=== PATIENT | female | born 1985 | race Caucasian/White ===

== ENCOUNTER 2016-12-29 08:38 | Inpatient (IN) | payer BC, OTHER ==
[2017-01-02] MEDS ORDERED: LR / Pitocin 40 units/1000 ml 1,000 ML IV PRN (16:03)
[2017-01-02] MEDS ORDERED: Acetaminophen 500 MG TAB PO PRN (16:03)
[2017-01-02] MEDS ORDERED: Promethazine HCl 25 MG/ML VIAL IM PRN (16:03)
[2017-01-02] MEDS ORDERED: Carboprost 250 MCG/ML AMP IM PRN ×2 (16:03→23:47)
[2017-01-02] MEDS ORDERED: Ondansetron HCl/PF 4 MG/2 ML Vial IVP PRN (16:03)
[2017-01-02] MEDS ORDERED: Zolpidem Tartrate 5 MG TAB PO PRN (16:03)
[2017-01-02 23:39] VITALS: BMI 29.7
[2017-01-02] MEDS ORDERED: LR 500 ML/Oxytocin 10 units 500 ML IV SCH (23:45)
[2017-01-02] MEDS ORDERED: Lidocaine 1% (PF) 30 ML VIAL SC PRN (23:59)
[2017-01-02] MEDS ORDERED: HYDROcodone/Acetaminophen 5/325 mg Tablet PO PRN (23:59)
[2017-01-02] MEDS ORDERED: Ibuprofen 800 MG TAB PO PRN (23:59)
[2017-01-02] MEDS ORDERED: Methylergonovine 0.2 MG/ML VIAL IM PRN (23:59)
[2017-01-02] MEDS ORDERED: Misoprostol 200 MCG TAB PR PRN (23:59)
[2017-01-02] MEDS ORDERED: Diphenoxylate HCl/Atropine Tablet PO PRN (23:59)
[2017-01-03] MEDS: Lactated Ringer's 1,000 ML IV SCH ×4 (00:10→19:36)
[2017-01-03] MEDS: Misoprostol 100 MCG TAB VAG SCH ×4 (00:25→22:02)
[2017-01-03 00:28] LABS: Hematocrit 37.4 % (36.0-47.0); Mean Platelet Volume 6.5 fL (7.4-10.4); Red Blood Cell (RBC) Count 3.89 mill/uL (4.20-5.40); White Blood Cell (WBC) Count 16.3 thou/uL (4.8-10.8)
[2017-01-03] MEDS: Fentanyl 4 mcg/Marc 0.1% Cadd 100 ML ONE ×2 (08:55→14:22)
[2017-01-03] MEDS ORDERED: FLU VACC QS2017-18 36 mo. & older 0.5 ML SYRINGE IM ONE (09:00)
[2017-01-03] MEDS ORDERED: Fentanyl 100 MCG/2 ML VIAL EPIDURAL SCH (10:10)
[2017-01-03] MEDS ORDERED: Eucerin (Mineral Oil/Petrolatum,White) 30 gm Jar TOP PRN ×3 (14:58→22:25)
[2017-01-03] MEDS ORDERED: Ondansetron HCl/PF 4 MG/2 ML Vial IVP PRN ×4 (14:58→22:25)
[2017-01-03] MEDS ORDERED: Naloxone HCl 0.4 mg/ml Vial IVP PRN ×6 (14:58→22:25)
[2017-01-03] MEDS ORDERED: Promethazine HCl 25 MG/ML VIAL IM PRN ×3 (14:58→22:25)
[2017-01-03] MEDS ORDERED: Lactated Ringer's 500 ML IV PRN ×2 (14:58→14:59)
[2017-01-03] MEDS ORDERED: ePHEDrine/0.9% NaCl/PF SYRINGE 50 mg/10 ml SLOW IVP PRN ×2 (14:58→14:59)
[2017-01-03] MEDS ORDERED: Acetaminophen 325 MG TAB PO PRN ×2 (14:58→14:59)
[2017-01-03] MEDS ORDERED: diphenhydrAMINE 50 MG/ML VIAL IVP PRN ×3 (14:58→22:25)
[2017-01-03] MEDS ORDERED: Communication Order-Pharmacy FS SCH ×3 (15:00→22:30)
[2017-01-03] MEDS ORDERED: Fentanyl 4mcg/Marcaine 0.1% Cassette 100 ML EPIDURAL SCH ×2 (15:00)
[2017-01-03] MEDS ORDERED: Bicitra 30 ML UDCUP ONE (20:12)
[2017-01-03] MEDS ORDERED: CEFAZOLIN/Water 2 GM/20 ML SYRINGE ONE (20:12)
[2017-01-03] MEDS ORDERED: Ondansetron HCl/PF 4 MG/2 ML Vial ONE (20:22)
[2017-01-03] MEDS ORDERED: Oxytocin 10 UNITS/ML VIAL ONE (20:22)
[2017-01-03] MEDS ORDERED: Morphine PF 1 MG/ML SYR ONE (20:22)
[2017-01-03] MEDS ORDERED: ePHEDrine/0.9% NaCl/PF SYRINGE 50 mg/10 ml ONE (20:22)
--- NOTE | 2017-01-03 20:26 | PDOC.LDPN ---
Labor & Delivery Progress Note - Subjective Subjective: painful contractions - Objective Vital signs reviewed and normal: yes SVE: 6 Effacement: 50% Station: -1 FHT: category 1 [place] contractions every: 2-3 AROM: clear fluid IUPC placed: yes Plan: other -: Patient was 5-6 cm at 1530 and has failed to progress past 6 cm with noted cervical edema and no further descent. heart rate tracing remains category 1. In light of no further progess, will proceed with primary section for failure to progress.
[2017-01-03] MEDS ORDERED: CEFAZOLIN/Water 2 GM/20 ML SYRINGE SLOW IVP SCH (20:30)
[2017-01-03] MEDS ORDERED: Bicitra 30 ML UDCUP PO SCH (20:30)
--- NOTE | 2017-01-03 21:19 | PDOC.OPDEL ---
OB Operative/Delivery Note Delivery Dr/Surgeon: Claire Assist: Mavis Pre-Delivery Diagnosis: arrest of dilation Procedure/Post Delivery Dx: primary low transverse CS Weeks gestation: 40 Anesthesia: epidural - Findings A Sex: female Weight: 9 lb 6 oz - 1 min: 9 - 5 min: 9 - Additional Findings/Plan Placenta delivered: manual removal findings: low transverse hysterotomy without extension
[2017-01-03] MEDS ORDERED: diphenhydrAMINE 25 MG CAP PO PRN (21:23)
[2017-01-03] MEDS ORDERED: Bisacodyl 10 MG SUPP PR PRN (21:23)
[2017-01-03] MEDS ORDERED: Lanolin Ointment 7 GM TUBE TOP PRN (21:23)
[2017-01-03] MEDS ORDERED: LR w/ Pitocin 40 units/1000 ML BAG IV SCH (21:30)
[2017-01-03] MEDS ORDERED: Adacel (T-DAP) 0.5 ML VIAL IM ONE (22:00)
[2017-01-03] MEDS ORDERED: Ibuprofen 800 MG TAB PO SCH (22:00)
[2017-01-03] MEDS ORDERED: Methylergonovine 0.2 MG/ML VIAL ONE (22:18)
[2017-01-03] MEDS ORDERED: Naloxone HCl 0.4 mg/ml Vial IV PRN (22:25)
[2017-01-03] MEDS ORDERED: Promethazine HCl 25 MG SUPP PR PRN (22:25)
[2017-01-03] MEDS ORDERED: HYDROmorphone 2 MG/ML VIAL SLOW IVP PRN (22:25)
[2017-01-03] MEDS ORDERED: Meperidine HCl/PF 25 MG/ML VIAL SLOW IVP PRN (22:25)
[2017-01-03] MEDS ORDERED: Ketorolac Tromethamine 30 MG/ML VIAL IVP SCH (22:30)
[2017-01-03] MEDS ORDERED: Meperidine HCl/PF 25 MG/ML VIAL ONE (23:45)
[2017-01-04] MEDS: Ketorolac Tromethamine 30 MG/ML VIAL IVP PRN ×2 (01:03→06:54)
[2017-01-04] MEDS: Lactated Ringer's 1,000 ML IV SCH ×3 (01:05→21:46)
[2017-01-04 05:54] LABS: Hematocrit 31.5 % (36.0-47.0); Mean Platelet Volume 6.6 fL (7.4-10.4); Red Blood Cell (RBC) Count 3.23 mill/uL (4.20-5.40)
--- NOTE | 2017-01-04 07:21 | PRG ---
DATE OF SERVICE: 01/03/2017 This is documentation that Dr. Christopher Groves was first breaker feeder on a primary for patient T wally Seals. Dr. Marietta Rangel was primary surgeon.
--- NOTE | 2017-01-04 07:45 | OP ---
DATE OF SURGERY: 01/03/2017 PREOPERATIVE DIAGNOSES: 1. A 31-year-old white female G1, P0 at 40 weeks 5 days' gestation, status post labor induction. 2. Failure to progress past 6 cm. POSTOPERATIVE DIAGNOSES: 1. A 31-year-old white female G1, P0 at 40 weeks 5 days' gestation, status post labor induction. 2. Failure to progress past 6 cm. 3. Large for gestational age female infant. PROCEDURE PERFORMED: Primary low-transverse section. SURGEON: Marietta Rangel M.D. SENIOR ADVISOR: Christopher Groves M.D. ANESTHESIA: Epidural. ESTIMATED BLOOD LOSS: 750 mL COMPLICATIONS: None. COUNTS: Correct x2. ANTIBIOTICS: Two grams Ancef conservation or heritage architect to the OR. FINDINGS: 1. Vigorous female infant, vertex presentation, clear amniotic fluid noted. weight 9 pounds 6 ounces. Apgars 9 and 9. 2. Normal-appearing fallopian tube, uterus, and ovaries. 3. Clear urine present in Alvarez catheter post procedure. DISPOSITION: To the recovery room stable. DESCRIPTION OF OPERATIVE PROCEDURE: The patient previously received informed consent in regard to s reji. She was taken back to the operating room where she received adequate dosing of her epidural for operative delivery. A Pfannenstiel incision was made in the lower abdomen and was carried down to the fascia. The fascia was nicked in midline. The fascial incision was extended bilaterally wi th the use of curved Edwards scissors. The rectus fascia was dissected superiorly and inferiorly off t he rectus muscle bellies. The rectus muscle belly was then divided in the midline. The peritoneal cavity was entered. A large Micah O retractor was then placed and a vesicouterine peritoneum incis ion was made, creating the bladder flap in the usual fashion. A 2 cm hysterotomy incision was made in the lower uterine segment and this was extended via finger fractionation. The baby was delivered in the vertex presentation. Mouth and nares were bulb suctioned on the abdomen. The cord was doub ly clamped and cut and handed to the retina subspecialist, Dr. Moreno who was in attendance. The usual cord blood was obtained and the placenta was manually extracted. The uterus was curetted of any re maining placental fragments with a dry laparotomy sponge. Hysterotomy incision was closed with #1 l ocking Monocryl suture. No extensions were noted. Hemostasis of the hysterotomy site was confirmed . The pelvis was then irrigated and again hysterotomy incision was inspected and hemostasis ensured . The rectus muscle bellies were then noted to be hemostatic after the Micah O retractor had been removed. The rectus fascia was then closed in running continuous fashion with 0 PDS suture x2. Sub cutaneous tissue was irrigated and noted be hemostatic prior to skin approximation with fabian. Th e surgery was terminated. No anesthetic or surgical complications were noted.
--- NOTE | 2017-01-04 08:08 | PDOC.PP ---
Post Progress Note Post Day #: 1 Subjective: adequate pain control. Baby is well. PO intake tolerated: yes Vital Signs (12 hours) Temp Pulse Resp BP Pulse Ox 01/04/17 07:56 98.1 F 70 18 107/54 L 01/04/17 04:30 98.2 F 67 18 111/57 L 01/04/17 01:55 98.2 F 64 20 115/58 L 01/04/17 00:55 98.3 F 64 20 109/64 98 01/04/17 00:00 98.2 F 68 20 114/65 98 Weight Weight 190 lb - Physical Examination General: NAD Cardiovascular: no m/r/g, RRR Respiratory: clear to auscultation bilaterally, non-labored breathing Abdominal: + bowel sounds, lochia, no distention, appropriately TTP Result Diagrams: 01/04/17 04:59 Additional Labs: Post Labs Blood Type O POSITIVE 01/03/17 00:10 Hep Bs Antigen Non-Reactive S/CO (NonReactive) 01/03/17 00:10 - Assessment/Plan post op day 0-1. Doing well. Hemodynamilcally stable. Uterine atony responded to hemabate and methergine..Routine post op care. fabian out pod 7.
[2017-01-04] MEDS: Ferrous Sulfate 325 MG TAB PO SCH ×2 (08:40→16:41)
[2017-01-04] MEDS: Docusate Calcium (SURFAK) 240 MG CAP PO SCH ×2 (09:20→21:42)
[2017-01-04] MEDS: Prenatal Vitamin 1 TAB PO SCH (09:21)
[2017-01-04] MEDS: Simethicone Chewable 80 MG TAB PO PRN (13:03)
[2017-01-04] MEDS: traMADol HCl 50 MG TAB PO PRN (13:03)
[2017-01-04] MEDS: Ibuprofen 800 MG TAB PO SCH ×2 (14:17→21:42)
[2017-01-05] MEDS: traMADol HCl 50 MG TAB PO PRN ×4 (00:19→17:41)
[2017-01-05] MEDS: Ibuprofen 800 MG TAB PO SCH ×3 (06:12→21:43)
[2017-01-05] MEDS: Lactated Ringer's 1,000 ML IV SCH ×2 (06:49→17:04)
[2017-01-05] MEDS: Prenatal Vitamin 1 TAB PO SCH (09:28)
[2017-01-05] MEDS: Docusate Calcium (SURFAK) 240 MG CAP PO SCH ×2 (09:28→21:43)
[2017-01-05] MEDS: Ferrous Sulfate 325 MG TAB PO SCH ×2 (09:29→17:04)
--- NOTE | 2017-01-05 16:06 | PRG ---
DATE OF SERVICE: 01/05/2017 PRIMARY OB: Dr. Marietta Rangel M.D. SUBJECTIVE: The patient is postop day #2 status post a primary for failure to progress. She has had an uncomplicated course thus far. The patient is reporting she is tolerating p.o., voiding on her own, having decreased lochia, and good pain control. OBJECTIVE: VITAL SIGNS: Today, blood pressure is 110/61, temperature 97.5, pulse of 87, and respiratory rate o f 18. GENERAL: She appears to be in no acute distress. She is alert, oriented, cooperative, and pleasant to interact with. HEENT: Head is normocephalic, atraumatic. ABDOMEN: Soft. Her incision site is clean, dry, and intact. There is no erythema or induration. Bowie are present. EXTREMITIES: Nontender. ASSESSMENT AND PLAN: The patient is postop day #2 status post a primary for failure to pr ogress. We anticipate discharge tomorrow.
[2017-01-05] MEDS: Simethicone Chewable 80 MG TAB PO PRN (21:43)
[2017-01-06] MEDS: traMADol HCl 50 MG TAB PO PRN ×2 (04:16→10:10)
[2017-01-06] MEDS: Lactated Ringer's 1,000 ML IV SCH ×2 (04:17→09:39)
[2017-01-06] MEDS: Ibuprofen 800 MG TAB PO SCH (04:17)
[2017-01-06 08:16] VITALS: BP 122/60; TEMP 97.9
[2017-01-06] MEDS: Ferrous Sulfate 325 MG TAB PO SCH (09:39)
[2017-01-06] MEDS: Docusate Calcium (SURFAK) 240 MG CAP PO SCH (10:09)
[2017-01-06] MEDS: Prenatal Vitamin 1 TAB PO SCH (10:09)
--- NOTE | 2017-01-06 14:00 | DIS ---
DATE OF ADMISSION: 01/02/2017 DATE OF DISCHARGE: 01/06/2017 ADMITTING DIAGNOSIS: 40 weeks and 5 days for an induction of labor. DISCHARGE DIAGNOSIS: Primary for arrest of labor. PROCEDURE: Primary low transverse section. CONSULTATIONS: None. HOSPITAL COURSE: The patient is a 31-year-old G1, P0 female who was admitted to the hospital on 08/2016 for postdates induction of labor. Labor was complicated by arrest at 6 cm and after food counselor ing with the patient, decision was made to move forward with a primary performed by Dr. Luis Angel richards. Her postoperative course has been uncomplicated. She is now postoperative day #3. The patie nt reports today that she is tolerating p.o., voiding on her own, having decreased lochia and good p ain control on tramadol and ibuprofen. PHYSICAL EXAMINATION: VITAL SIGNS: Today, blood pressure 115/73, temperature 98.1, pulse of 91, respiratory rate of 20. GENERAL: She appears to be in no acute distress. She is alert and oriented, cooperative and pleasa nt to interact with. HEENT: His head is normocephalic, atraumatic. Fundus is firm. Incision is clean, dry, and intact. No induration or erythema. Rombauer are in place. EXTREMITIES: Nontender with minimal edema. LABORATORY DATA: Her post-delivery hemoglobin is 10.5, hematocrit 31.5, platelets of 283,000. The patient is being discharged to home. She has an appointment on Sunday for staple removal and has been instructed to seek medical attention if she experiences fever, increasing pain, bleeding, hardness, redness or drainage from the incision. The patient has been given restrictions of 15-poun d weight limit over the next 4-6 weeks[address] No driving for 2 weeks. The patient is being discharged wi tramadol and ibuprofen as needed for pain.
== END 2017-01-06 12:25 | disposition home or self-care (01) | DRG 766 ==
LOC: EDSTATUS 12:14 → MERGE 13:11 → L&D 01-02 23:04 → 3SW 01-04 00:19
PROVIDERS: ADMIT Obstetrics & Gynecology; ATTEND Obstetrics & Gynecology
PROC: 3E0P3VZ Introduction of Hormone into Female Reproductive, Percutaneous Approach (ICD-10-PCS; 2017-01-02)
PROC: 10907ZC Drainage of Amniotic Fluid, Therapeutic from Products of Conception, Via Natural or Artificial Opening (ICD-10-PCS; principal; 2017-01-03)
PROC: 10D00Z1 Extraction of Products of Conception, Low, Open Approach (ICD-10-PCS; 2017-01-03)
DX: O48.0 Post-term pregnancy (principal); O62.1 Secondary uterine inertia; Z3A.40 40 weeks gestation of pregnancy; Z37.0 Single live birth
CPT/HCPCS: 36415; 85027; 86780; 86850; 86900; 86901; 87340; J1885; J2175; J2210; J2274; J2405; J2590; J3490; J7120